=== PATIENT | female | born 1995 | race American Indian/Alaskan Native ===

== ENCOUNTER → 2018-06-04 | Outpatient (CLI) | payer OTHER ==
[~2018-06-04] MED LIST: BIRTH CONTROL; CODACE30 PO; CRUTCH4 USE; CYCL10 PO; FAMO20 PO; HYDACE5 PO; KETO10 PO; LORA1 PO; LUTERA; NAPR500 PO; OXYACE5T PO; RXOXYACE PO; TRAM50 PO
== END | disposition home or self-care (01) ==
LOC: LAB SHORT 16:12 → LAB 16:12
DX: L02.32 Furuncle of buttock (principal); L56.2 Photocontact dermatitis [berloque dermatitis]; R21 Rash and other nonspecific skin eruption
CPT/HCPCS: 87070; 87205

== ENCOUNTER 2018-10-04 06:08 | Day surgery (SDC) | payer OTHER ==
[~2018-10-04] VITALS: Ht 175.3 cm; Wt 96.2 kg
[~2018-10-04 06:08] MED LIST changes: +Cleocin T60 ML TOP; +IBUP800 PO; +Nuvaring Vagin1 EACH VAG; +Sprintec1 EACH PO; +TRIA15CR3 TOP
[2018-10-04] MEDS ORDERED: Microgestin1 EACH PO (06:43)
--- NOTE | 2018-10-04 07:10 | NUR ---
10/04/18 0710 Greg Morgan PRE OP TEACHING COMPLETE. PT AND MOM HAVE NO QUESTIONS OR CONCERNS AT THIS TIME. PT RESTING COMFORTABLY IN PREOP WITH MOM AT BEDSIDE. CALL LIGHT WITHIN REACH. WILL CONTINUE TO MONITOR UNTIL REPORT TO OR NURSE.
--- NOTE | 2018-10-04 08:00 | NUR ---
10/04/18 0759 Eleuterio Pal PT NOTED TO HAVE MULTIPLE PUSTULES ON HER BUTTOCKS. NO OPEN SKIN NOTED.
--- NOTE | 2018-10-04 09:42 | NUR ---
10/04/18 0942 Tatum Lara RECIEVED REPORT FROM [facility]. PT FURTHER MEDICATED FOR NAUSEA WITH REGLAN. PT STATES PAIN IN HER ABDOMEN IS A 4/10 AND DENIES PAIN MEDS AT THIS TIME. ANTONIO AT BEDSIDE. PT TAKING SMALL SIPS AND SMALL BITES OF SALTINES. VSS.
== END 2018-10-04 10:25 | disposition home or self-care (01) ==
LOC: ORSCSDS 06:08
PROVIDERS: Obstetrics & Gynecology
PROC: 0UB74ZZ Excision of Bilateral Fallopian Tubes, Percutaneous Endoscopic Approach (ICD-10-PCS; principal; 2018-10-04 07:30)
DX: Z30.2 Encounter for sterilization (principal); N80.3 Endometriosis of pelvic peritoneum; F17.210 Nicotine dependence, cigarettes, uncomplicated
CPT/HCPCS: 88302; J0690; J1100; J1885; J2250; J2405; J2704; J2710; J2765; J3010; J7120

== ENCOUNTER 2019-04-01 08:41 | Emergency (ER) | payer OTHER ==
[~2019-04-01] VITALS: Ht 175.3 cm; Wt 99.8 kg
[~2019-04-01 08:41] MED LIST changes: +Microgestin1 EACH PO
[2019-04-01 09:31] LABS: Source, Urine Clean Catch
[2019-04-01 09:35] LABS: BASOPHILS ABSOLUTE AUTO 0.03 K/mm3 (0.00-0.23); BASOPHILS PERCENT AUTO 1 % (0-2); EOSINOPHILS ABSOLUTE AUTO 0.12 K/mm3 (0.00-0.68); EOSINOPHILS PERCENT AUTO 2 % (0-6); Hematocrit 45.6 % (33.0-51.0); Hemoglobin 15.8 g/dL (11.5-16.0); IMMATURE GRAN ABSOLUTE AUTO 0.02 K/mm3 (0.00-0.10); IMMATURE GRAN PERCENT AUTO 0 % (0-1); LYMPHOCYTES ABSOLUTE AUTO 1.18 K/mm3 (0.84-5.20); LYMPHOCYTES PERCENT AUTO 18 % (21-46); MONOCYTES ABSOLUTE AUTO 0.41 K/mm3 (0.16-1.47); MONOCYTES PERCENT AUTO 6 % (4-13); Mean Corpuscular HGB 31.5 pg (26.0-34.0); Mean Corpuscular HGB Conc 34.6 g/dL (31.5-36.5); Mean Corpuscular Volume 91 fL (80-100); Mean Platelet Volume 9.9 fL (9.1-12.4); NEUTROPHILS ABSOLUTE AUTO 4.83 K/mm3 (1.96-9.15); NEUTROPHILS PERCENT AUTO 73 % (41-73); Platelet Count 270 K/mm3 (150-400); RDW Coefficient Variation 11.8 % (11.7-14.2); RDW Standard Deviation 39.7 fL (35.1-46.3); Red Blood Cell Count 5.01 M/mm3 (3.80-5.20); White Blood Cell Count 6.59 K/mm3 (4.00-11.30)
[2019-04-01 09:44] LABS: Bilirubin, Urine Neg (Neg); Blood, Urine 1+ (Neg); Glucose Qualitative, Urine Neg (Neg); Ketones, Urine Neg (Neg); Leukocyte Esterase, Urine Neg (Neg); Nitrite, Urine Neg (Neg); Protein, Urine Neg (Neg); Urobilinogen, Urine NORM (Normal)
[2019-04-01 09:51] LABS: Alanine Aminotransfer (ALT/SGP 28 U/L (12-78); Albumin, Blood 4.1 g/dL (3.4-5.0); Albumin/Globulin Ratio 1.2 (0.8-1.8); Alk Phos 47 U/L (50-136); Anion Gap 6 mmol/L (6-16); Aspartate Aminotrans (AST/SGOT 18 U/L (12-37); Bilirubin, Total 0.6 mg/dL (0.1-1.0); Blood Urea Nitrogen 13 mg/dL (8-24); Bun/Creatinine Ratio 19.3 (12.0-20.0); CO2, Blood 25 mmol/L (21-32); Chloride, Blood 110 mmol/L (98-108); Creatinine, Blood 0.67 mg/dL (0.40-1.00); Globulin, Blood 3.4 g/dL (2.2-4.0); Glomerular Filtration Rate >60 (60-); Glucose, Blood 84 mg/dL (70-99); Sodium, Blood 141 mmol/L (136-145); Total Protein, Blood 7.5 g/dL (6.4-8.2)
[2019-04-01 09:53] LABS: Appearance, Urine Clear (Clear); Color, Urine Yellow (P-Yellow)
[2019-04-01 09:54] LABS: White Blood Cells, Urine 0-2 /hpf (0-5)
[2019-04-01 09:55] LABS: Bacteria Many /hpf; Squamous Epithelial Cells Mod /hpf (Few)
== END 2019-04-01 12:29 | disposition home or self-care (01) ==
LOC: ER 08:41
PROVIDERS: Emergency Medicine
DX: R10.32 Left lower quadrant pain (principal); F17.210 Nicotine dependence, cigarettes, uncomplicated
CPT/HCPCS: 36415; 76830; 76856; 80053; 81001; 81025; 83690; 85025; 87086; 96374; 99284-25; J1885

== ENCOUNTER 2023-01-03 22:52 | Emergency (ER) | payer OTHER ==
[~2023-01-03] VITALS: Ht 175.3 cm; Wt 127.0 kg
[2023-01-03 23:13] VITALS: BP 138/89
[2023-01-03 23:20] LABS: Source, Urine Clean Catch
[2023-01-03 23:38] LABS: Bilirubin, Urine Neg (Neg); Blood, Urine 4+ (Neg); Glucose Qualitative, Urine Neg (Neg); Ketones, Urine Neg (Neg); Leukocyte Esterase, Urine 1+ (Neg); Nitrite, Urine Neg (Neg); Protein, Urine 2+ (Neg); Urobilinogen, Urine 1+ (Normal)
[2023-01-03 23:46] LABS: Appearance, Urine Clear (Clear); Color, Urine Yellow (P-Yellow)
[2023-01-03 23:47] LABS: Bacteria Few /hpf; Red Blood Cells, Urine 25-50 /hpf (0-2); Squamous Epithelial Cells Mod /hpf (Few); White Blood Cells, Urine 0-2 /hpf (0-5)
[2023-01-04] MEDS ORDERED: CEPH500 PO (00:04)
== END 2023-01-04 00:15 | disposition home or self-care (01) ==
LOC: ER 22:52
PROVIDERS: Physician Assistant
DX: N39.0 Urinary tract infection, site not specified (principal); G43.909 Migraine, unspecified, not intractable, without status migrainosus; F17.210 Nicotine dependence, cigarettes, uncomplicated
CPT/HCPCS: 81001; 87086; 99283; A9270